=== PATIENT | female | born 1945 | race Caucasian/White ===

== ENCOUNTER 2021-09-22 16:57 | Inpatient (IN) | payer OTHER, MEDICAID ==
[~2021-09-22] VITALS: Ht 160 cm; Wt 61.2 kg
[2021-09-22 16:59] VITALS: BP_SYST 146
--- NOTE | 2021-09-22 17:04 | NUR ---
PT TRIAGED AND IN GURNEY WITH EMT'S PRESESNT, AWARE OF MSE NEEDS
[2021-09-22] MEDS ORDERED: cefTRIAXone 1 GM IVPB PREMIX 50 ML IV ONE (17:15)
[2021-09-22 18:28] LABS: BASOPHILS # (AUTO) 0.1 K/uL (0.0-0.2); EOSINOPHILS # (AUTO) 0.2 K/uL (0.0-0.4); EOSINOPHILS % (AUTO) 2.5 % (0.0-4.0); HEMATOCRIT 30.9 % (36-48); HEMOGLOBIN 10.4 g/dL (12.0-16.0); LYMPHOCYTES # (AUTO) 0.4 K/uL (1.0-5.5); LYMPHOCYTES % (AUTO) 4.8 % (20.5-51.5); MEAN CORPUSCULAR HEMOGLOBIN 31 pg (27-31); MEAN CORPUSCULAR HGB CONC 34 % (32-36); MEAN CORPUSCULAR VOLUME 93 fL (79.0-98.0); MONOCYTES # (AUTO) 0.5 K/uL (0.0-1.0); MONOCYTES % (AUTO) 6.2 % (1.7-9.3); NEUTROPHILS # (AUTO) 6.6 K/uL (1.8-7.7); NEUTROPHILS % (AUTO) 85.5 % (40.0-70.0); PLATELET COUNT (AUTO) 208 K/uL (130-430); RED BLOOD CELL COUNT(AUTO) 3.32 MIL/uL (4.2-6.2); RED CELL DISTRIBUTION WIDTH 18.6 % (9.0-15.0); WHITE BLOOD COUNT (AUTO) 7.7 K/uL (4.8-10.8)
[2021-09-22 18:29] LABS: ANION GAP 7 (5-15); CALCIUM 8.8 mg/dL (8.4-11.0); CHLORIDE 98 mmol/L (98-107); CREATININE 3.87 mg/dL (0.55-1.30); GLUCOSE 142 mg/dL (70-99); POTASSIUM 4.4 mmol/L (3.5-5.1); SODIUM SERUM 138 mmol/L (136-145); UREA NITROGEN, BLOOD 19 mg/dL (8-21)
[2021-09-22 18:42] LABS: ALANINE AMINOTRANSFERASE 13 U/L (12-78); ALBUMIN 3.1 g/dL (3.4-4.8); ASPARTATE AMINOTRANSFERASE 18 U/L (10-37); TOTAL BILIRUBIN 0.4 mg/dL (0.0-1.0)
--- NOTE | 2021-09-22 20:10 | NUR ---
PT [facility] CARE BLS AMB #9005 . REPORT FROM EMT. PT HAD A SYNCOPAL EPISODE TO DAY AT [facility] ABOUT 2-3 IN/ STAFF. PT HAS SHUNT TO LEFT UPPER EXT WITH GOOD BRUI PALP. HX; BLINDNESS, DM, RF. [id number]/ PARAMEDICS. PT HAS ALLERGY TO CODIENE. PT ARRIVED A/O X3, CLEAR SPEECH,
--- NOTE | 2021-09-22 20:32 | NUR ---
Placed in room [address] monitor, blood pressure machine and pulse oximeter. To gown for exam. Side rails up. Report given to HUNTER Robert
--- NOTE | 2021-09-22 21:37 | NUR ---
Urine collected: clear yellow, sent to lab. In-dwelling catheter.
[2021-09-22 21:45] LABS: BILIRUBIN,URINE NEGATIVE (NEGATIVE); BLOOD, URINE 1+ (NEGATIVE); COLOR,URINE YELLOW (YELLOW); GLUCOSE,URINE TRACE (NEGATIVE); KETONES,URINE NEGATIVE (NEGATIVE); LEUKOCYTE ESTERASE ,URINE 1+ (NEGATIVE); NITRITE, URINE NEGATIVE (NEGATIVE); PH,URINE 8.5 (5.0-8.0); PROTEIN URINE 2+ (NEGATIVE); UROBILINOGEN,URINE 0.2 (0.2-1.0)
[2021-09-22 21:52] LABS: CLARITY/URINE HAZY (CLEAR)
[2021-09-22 21:54] LABS: BACTERIA,URINE MODERATE /HPF (None Seen); MUCUS,URINE None Seen /LPF (None Seen)
--- NOTE | 2021-09-22 21:57 | NUR ---
COVID NASAL SWAB COLLECTED AND SENT
--- NOTE | 2021-09-22 22:24 | NUR ---
HUNTER LEWIS 16 FR JABIER PACED, UA COLLECTED AND SENT
[2021-09-22] MEDS ORDERED: cefTRIAXone 1 GM VIAL ONE (22:42)
[2021-09-22] MEDS ORDERED: ACETAMINOPHEN 325 MG TABLET PO PRN (23:00)
[2021-09-22] MEDS ORDERED: INSULIN REGULAR, HUMAN 100 UNITS/ML, 10 ML VIAL (humuLIN R) SUBCUT PRN (23:00)
--- NOTE | 2021-09-22 23:00 | NUR ---
Admit bed requested Patient will be admitted to care of Admitted to TELEMETRY unit. Diagnosis UTI Inpatient (Yes or No) YES Observation (Yes or No) NO Orientation concerns or request close to nursing station (Yes or No) NO Covid Status NEGATIVE On vent or bipap NO Isolation requirements NO Needs a sitter NO From Home (Yes or if No enter name of facility) SNF Requires Dialysis (Yes or No) NO Med Rec Completed (Yes of No) NO
[2021-09-23] MEDS ORDERED: NOR10 PO (00:58)
[2021-09-23] MEDS ORDERED: LORA-258 PO (00:59)
[2021-09-23] MEDS ORDERED: BISA-95 PO (01:03)
[2021-09-23] MEDS ORDERED: LIP20 PO (01:03)
[2021-09-23] MEDS ORDERED: FAMO20TA8 PO (01:04)
[2021-09-23] MEDS ORDERED: HYDR-4038 PO (01:05)
[2021-09-23] MEDS ORDERED: LABE100T5 PO (01:06)
[2021-09-23] MEDS ORDERED: LEVO125T8 PO (01:07)
[2021-09-23] MEDS ORDERED: MOM PO (01:08)
[2021-09-23] MEDS ORDERED: ONDA-8 TL (01:10)
[2021-09-23] MEDS ORDERED: renavite (01:11)
[2021-09-23] MEDS ORDERED: SEVE800T8 PO (01:12)
[2021-09-23] MEDS ORDERED: TEMA15CA5 PO (01:13)
[2021-09-23] MEDS ORDERED: SER25 PO (01:14)
--- NOTE | 2021-09-23 01:44 | NUR ---
PT STABLE FOR ADISSION TO ROOM 132A. TO ROOM VIA VIKI WITH RN AND ALL BELONGINGS, ON MONITOR
[2021-09-23 01:46] VITALS: BP_SYST 142
--- NOTE | 2021-09-23 02:23 | NUR ---
CONSULTATION CALLED FOR DR. CHAPMAN FOR CONSULT OF RENAL FAILURE ORDER BY DR. DIALIUM SPOKE WITH LATOYA
[2021-09-23] MEDS ORDERED: HYDROmorphone 1 MG/ML INJ. CARTRIDGE IVP PRN (03:15)
--- NOTE | 2021-09-23 06:12 | NUR ---
CLOSING NOTE PATIENT IN BED, SLEEPING AT THIS TIME. NO S/S OF ACUTE DISTRESS NOTED. BREATHING EVEN AND UNLABORED. HOB RAISED. IV SITE PATENT, NO SIGNS OF INFILTRATION OR INFECTION NOTED. EUGENE ATTACHED, SECURED, AND DRAINING BY GRAVITY. ALL NEEDS MET THROUGHOUT SHIFT. FALL, SAFETY PRECAUTIONS MAINTAINED THROUGHOUT SHIFT. WILL CONTINUE TO MONITOR UNTIL PATIENT CARE IS ENDORSED TO ONCOMING DAYSHIFT NURSE.
[2021-09-23 08:00] VITALS: BP_SYST 157
--- NOTE | 2021-09-23 08:10 | NUR ---
CONSULTATION PAGED REASON FOR CONSULTATION:RENAL FAILURE WAS CONSULT CALLED?Y -PERSON WHO WAS NOTIFIED:BLAZE CONSULTING PHYSICIAN:LORENZO FRANCO (JAYNE DINERO FAST FOOD CREW LEAD) INFORMATICS CONSULTANT SPECIALTY:NEPHRO INFORMATICS CONSULTANT PHONE NUMBER:[phone] REQUESTING PHYSICIAN: NIDIA CORRAL
[2021-09-23] MEDS: amLODIPine BESYLATE 10 MG TABLET PO SCH (09:27)
[2021-09-23 12:00] VITALS: BP_SYST 150
[2021-09-23] MEDS ORDERED: ONDANSETRON 4 MG ODT TAB TL PRN (13:30)
[2021-09-23] MEDS ORDERED: MILK OF MAGNESIA 30 ML UDC PO PRN (13:30)
[2021-09-23] MEDS: LORazepam 1 MG TABLET PO SCH ×2 (14:00→22:00)
[2021-09-23] MEDS ORDERED: ATORVASTATIN 20 MG TABLET PO ONE (14:00)
[2021-09-23] MEDS ORDERED: amLODIPine BESYLATE 10 MG TABLET PO ONE (14:00)
[2021-09-23] MEDS ORDERED: FAMOTIDINE 20 MG TABLET PO ONE (14:00)
[2021-09-23] MEDS ORDERED: LEVOTHYROXINE SODIUM 0.125 MG TABLET PO ONE (14:00)
[2021-09-23] MEDS ORDERED: SEVELAMER CARBONATE 800 MG TABLET PO ONE (14:15)
[2021-09-23] MEDS ORDERED: QUEtiapine FUMARATE 25 MG TABLET PO ONE (14:15)
[2021-09-23] MEDS: hydrALAZINE HCL 25 MG TABLET PO SCH ×2 (15:00→21:00)
[2021-09-23] MEDS ORDERED: LORazepam 2 MG/ML VIAL IM ONE ×5 (15:30→23:15)
[2021-09-23] MEDS: SEVELAMER CARBONATE 800 MG TABLET PO SCH (18:00)
[2021-09-23 20:00] VITALS: BP_SYST 157
[2021-09-23] MEDS: QUEtiapine FUMARATE 25 MG TABLET PO SCH (21:00)
[2021-09-23] MEDS ORDERED: TEMAZEPAM 15 MG CAPSULE PO SCH (21:00)
[2021-09-23] MEDS: LABETALOL HCL 100 MG TABLET PO SCH (21:00)
--- NOTE | 2021-09-23 22:00 | NUR ---
TRIED SOME MANY TIMES TO INSERT IV ON PT,WAS UNSUCCESSFUL, PT HARD MD NATI NOTIFIED.
[2021-09-23] MEDS ORDERED: cefTRIAXone 1 GM in D5W 50 ML IV SCH (23:00)
[2021-09-23] MEDS ORDERED: LORazepam 2 MG/ML VIAL ONE (23:37)
[2021-09-24] MEDS: LORazepam 1 MG TABLET PO SCH ×3 (04:40→14:00)
[2021-09-24] MEDS ORDERED: LEVOTHYROXINE SODIUM 0.125 MG TABLET PO SCH (07:00)
[2021-09-24] MEDS: SEVELAMER CARBONATE 800 MG TABLET PO SCH ×2 (08:00→12:00)
--- NOTE | 2021-09-24 08:14 | NUR ---
NURSE NOTE PATIENT IN BED, RESPIRATIONS EVEN, NON LABORED, BED IN LOW AND LOCKED POSITION CALL LIGHT WITHIN REACH. BED ALARM ON. PATIENT REFUSED MORNING MEDICATIONS AND VS. EDUCATED PATIENT REGARDING THE NEED FOR MEDICATIONS AND ASSESSMENT OF VS. PATIENT CONTINUED TO REFUSE
[2021-09-24] MEDS: QUEtiapine FUMARATE 25 MG TABLET PO SCH (09:00)
[2021-09-24] MEDS: amLODIPine BESYLATE 10 MG TABLET PO SCH (09:00)
[2021-09-24] MEDS ORDERED: ATORVASTATIN 20 MG TABLET PO SCH (09:00)
[2021-09-24] MEDS ORDERED: amLODIPine BESYLATE 10 MG TABLET PO SCH (09:00)
[2021-09-24] MEDS ORDERED: FAMOTIDINE 20 MG TABLET PO SCH (09:00)
[2021-09-24] MEDS: LABETALOL HCL 100 MG TABLET PO SCH (09:00)
[2021-09-24] MEDS: hydrALAZINE HCL 25 MG TABLET PO SCH ×2 (09:00→14:00)
[2021-09-24 12:00] VITALS: BP_SYST 151
--- NOTE | 2021-09-24 12:58 | NUR ---
MD DR CLINTON BEDSIDE EXAMINING PATIENT. NEW ORDERS RECEIVED
--- NOTE | 2021-09-24 13:00 | NUR ---
INFORMED DR MOYA THAT PATIENT HAS REFUSED ALL MEDICATIONS, BLOOD SUGAR CHECKS,
--- NOTE | 2021-09-24 14:04 | NUR ---
ATIVAN PATIENT REFUSED MEDICATIONS, APRESOLINE AND ATIVAN. SECOND RN HILLARY WITNESSED RETURNING OF ATIVAN
--- NOTE | 2021-09-24 14:29 | NUR ---
ATTENDING MD TELEPHONE REPAIRER DR MOYA WAS CALLED, RE: TO INFORM THAT PT HAS MRSA OF THE NARES. SPOKE TO PERICO
--- NOTE | 2021-09-24 14:30 | NUR ---
MRSA NARES INFORMED DR MOYA OF POSITIVE MRSA NARES NEW ORDERS RECEIVED
--- NOTE | 2021-09-24 15:09 | NUR ---
AMA: Patient does not wish to proceed with medical care recommended by . Patient given information related to possible complications, up to and including , which could occur as a result of leaving hospital at this time. Patient verbalizes understanding of risks involved leaving against medical advice. Patient has signed AMA form. Removed dickerson catheter. Patient denies any pain or discomfort. outsole caser Leandra Nuñez spoke with patients son and signed the form. Paged Dr. Mckeon
--- NOTE | 2021-09-24 15:13 | NUR ---
ATTENDING MD TRIMMING MACHINE OPERATOR DR MOYA WAS CALLED RE: TO NOTIFY THAT PT LEFT AMA. SPOKE TO PERICO.
--- NOTE | 2021-09-24 15:15 | NUR ---
INFORMED DR MOYA THAT PATIENT LEFT AMA
[2021-09-24] MEDS ORDERED: MUPIROCIN 2% TOPICAL OINTMENT 22 GM NS SCH (21:00)
== END 2021-09-24 15:15 | disposition left against medical advice (07) | DRG 70 ==
LOC: SED 16:57 → STU 22:37 → SMU 09-23 22:08
PROVIDERS: ADMIT Family Medicine; ATTEND Family Medicine
DX: G93.41 Metabolic encephalopathy (principal); N18.6 End stage renal disease; N39.0 Urinary tract infection, site not specified; I12.0 Hypertensive chronic kidney disease with stage 5 chronic kidney disease or end stage renal disease; D63.1 Anemia in chronic kidney disease; E11.22 Type 2 diabetes mellitus with diabetic chronic kidney disease; Z20.822 Contact with and (suspected) exposure to COVID-19; Z88.5 Allergy status to narcotic agent; Z99.2 Dependence on renal dialysis
CPT/HCPCS: 36415; 71045; 76700-TC; 80053; 81000; 82962; 83605; 85025; 87040; 87081; 87086; 93005; 96365; 99285; G0378; J0696; J1170; J2060; J7060